=== PATIENT | male | born 1970 | race Hispanic/Latino ===

== ENCOUNTER 2024-03-14 20:27 | Emergency (ER) | payer SELFPAY ==
[2024-03-15 02:46] VITALS: BP 147/78
[2024-03-15] MEDS ORDERED: NAPROXEN 250 MG/TAB PO ONE (02:55)
== END 2024-03-15 02:50 | disposition home or self-care (01) | DRG 914 ==
LOC: ED 20:27
DX: S69.91XA Unspecified injury of right wrist, hand and finger(s), initial encounter (principal); X58.XXXA Exposure to other specified factors, initial encounter